=== PATIENT | female | born 1975 | race Caucasian/White ===

== ENCOUNTER 2020-08-11 13:54 | Outpatient (REF) | payer OTHER, SELFPAY ==
[2020-08-11 17:27] LABS: Influenza A PCR NEGATIVE (Negative); Influenza B PCR NEGATIVE (Negative); Resp Syncy Virus RNA Qual PCR NEGATIVE (Negative); SARS COV2 PCR INHOUSE POSITIVE (Negative)
== END 2020-08-11 13:55 | disposition home or self-care (01) ==
LOC: HO.LAB 13:54
PROVIDERS: Visit Provider Hospitalist
DX: Z20.828 Contact with and (suspected) exposure to other viral communicable diseases (principal)
CPT/HCPCS: 0241U

== ENCOUNTER 2020-12-11 12:54 | Outpatient (REF) | payer OTHER, SELFPAY | END 2020-12-11 12:55 | disposition home or self-care (01) | LOC: HO.HMGCLDS 12:54 | PROVIDERS: PCP Nurse Practitioner Family; Visit Provider Internal Medicine | DX: Z20.822 Contact with and (suspected) exposure to COVID-19 (principal) | CPT/HCPCS: U0003; U0005 ==

== ENCOUNTER 2021-09-14 11:10 | Outpatient (REF) | payer OTHER, SELFPAY ==
[2021-09-14 13:51] LABS: Hematocrit 38.1 % (37.0-47.0); Hemoglobin 11.8 g/dl (12.0-16.0); Mean Corpuscular Hemoglobin 23.6 pg (27.0-33.0); Mean Corpuscular Volume 76.2 fL (80.0-98.0); Mean Platelet Volume 9.8 fL (9.4-12.3); Platelet Count 332 X10*3/uL (160-400); Red Cell Distribution Width 17.4 % (11.0-16.0); White Blood Count 6.4 X10*3/uL (4.8-10.8)
[2021-09-14 14:05] LABS: Alanine Aminotransferase 24 U/L (0-31); Albumin Level 4.2 g/dL (3.5-5.0); Alkaline Phosphatase 96 U/L (39-117); Anion Gap 12 (12-20); Aspartate Amino Transferase 25 U/L (5-31); Bilirubin Direct < 0.2 mg/dL (0.0-0.5); Bilirubin Total 0.3 mg/dL (0.0-1.0); Blood Urea Nitrogen 12 mg/dL (9-16); Calcium 9.6 mg/dL (8.4-10.2); Carbon Dioxide 25 mmol/L (22-29); Chloride 106 mmol/L (96-108); Cholesterol 263 mg/dL; Estimated Glomerular Filt Rate > 60; Glucose Random 81 mg/dL (60-115); HDL Cholesterol 36 mg/dL; LDL Cholesterol Calculated 194 mg/dl; Potassium 4.4 mmol/L (3.3-5.1); Sodium 139 mmol/L (135-145); Total Protein 7.8 g/dL (6.5-8.0); Triglycerides 165 mg/dL
[2021-09-14 14:26] LABS: Thyroid Stimulating Hormone 1.66 uIU/mL (0.32-4.0)
[2021-09-14 14:46] LABS: Erythrocyte Sedimentation Rate 22 MM/HR (0-20)
== END 2021-09-14 11:11 | disposition home or self-care (01) ==
LOC: HO.HMGCLDS 11:10
PROVIDERS: PCP Nurse Practitioner Family; Visit Provider Internal Medicine
DX: R53.83 Other fatigue (principal)
CPT/HCPCS: 36415; 80048; 80061; 80076; 84443; 85027; 85652

== ENCOUNTER 2022-01-09 08:52 | Outpatient (REF) | payer OTHER, SELFPAY ==
[2022-01-09 11:17] LABS: MANUAL DIFF FLAG NO
[2022-01-09 11:25] LABS: Basophils Absolute Auto 0.1 X10*3/uL (0.0-0.2); Basophils Percent Auto 0.9 % (0-2); Eosinophils Absolute Auto 0.2 X10*3/uL (0.0-0.4); Eosinophils Percent Auto 2.8 % (0-4); Hemoglobin 11.2 g/dl (12.0-16.0); Imm Gran Abs Auto 0.01 X10*3/uL (0.00-0.03); Imm Gran Pct Auto 0.2 % (0.0-0.4); Lymphocytes Percent Auto 34.6 % (20-40); Mean Corpuscular HGB Conc 30.3 g/dl (31.0-35.0); Mean Corpuscular Hemoglobin 22.8 pg (27.0-33.0); Mean Corpuscular Volume 75.4 fL (80.0-98.0); Mean Platelet Volume 9.7 fL (9.4-12.3); Monocytes Absolute Auto 0.4 X10*3/uL (0.1-1.2); Monocytes Percent Auto 6.7 % (2-11); Neutrophils Absolute Auto 3.2 x10*3/uL (2.0-8.3); Neutrophils Percent Auto 54.8 % (45-73); Platelet Count 324 X10*3/uL (160-400); Red Blood Count 4.91 X10*6/uL (4.20-5.50); Red Cell Distribution Width 19.9 % (11.0-16.0); White Blood Count 5.8 X10*3/uL (4.8-10.8)
[2022-01-09 11:28] LABS: Appearance Urine CLEAR; Color Urine YELLOW; Glucose Urine UA NEG (NEG); Leukocyte Esterase Urine NEG (NEG); Nitrite Urine NEG (NEG); PH 5.5 (5.0-8.0); Specific Gravity - Urine >= 1.030 (1.005-1.025); Urine Blood NEG (NEG); Urine Ketones NEG (NEG); Urine Protein NEG (NEG-TRACE)
[2022-01-09 11:56] LABS: Ferritin 4 ng/mL (10-250); TSH reflex Free T4 1.75 uIU/mL (0.32-4.0)
[2022-01-09 11:58] LABS: Alanine Aminotransferase 20 U/L (0-31); Albumin Level 4.1 g/dL (3.5-5.0); Alkaline Phosphatase 94 U/L (39-117); Anion Gap 12 (12-20); Aspartate Amino Transferase 21 U/L (5-31); Bilirubin Total 0.4 mg/dL (0.0-1.0); Blood Urea Nitrogen 13 mg/dL (9-16); Calcium 9.6 mg/dL (8.4-10.2); Carbon Dioxide 25 mmol/L (22-29); Chloride 108 mmol/L (96-108); Estimated Glomerular Filt Rate > 60; Glucose Random 97 mg/dL (60-115); Iron 23 mcg/dL (30-160); Percent Iron Saturation 5 % (15-50); Potassium 4.6 mmol/L (3.3-5.1); Sodium 140 mmol/L (135-145); Total Iron Binding Capacity 442 mcg/dL (228-428); Total Protein 7.6 g/dL (6.5-8.0); Unsaturated Iron Binding 419 ug/dL
[2022-01-09 12:10] LABS: Folate 11.9 ng/mL (> or = 4.0); Vitamin B12 284 pg/mL (200-900)
[2022-01-09 12:17] LABS: Erythrocyte Sedimentation Rate 20 MM/HR (0-20)
[2022-01-11 21:11] LABS: Lyme Abs Screen <0.90 index
[2022-01-13 12:16] LABS: Anti Nuclear Antibody Screen POSITIVE (NEGATIVE)
[2022-01-17 15:35] LABS: Vitamin D 25-OH, D2 <4 ng/mL; Vitamin D 25-OH, D3 14 ng/mL; Vitamin D 25-OH, Total 14 ng/mL (30-100)
== END 2022-01-09 08:53 | disposition home or self-care (01) ==
LOC: HO.HMGCLDS 08:52
PROVIDERS: PCP Nurse Practitioner Family; Visit Provider Nurse Practitioner Family
DX: R53.83 Other fatigue (principal)
CPT/HCPCS: 36415; 80053; 81003; 82306; 82607; 82728; 82746; 83540; 84443; 85025; 85652; 86038; 86039; 86140; 86617; 86618

== ENCOUNTER 2022-02-01 | Outpatient (REF) | payer OTHER, SELFPAY ==
[2022-02-02 12:15] LABS: FIT Int Ctl YES; FIT1 NEGATIVE (NEGATIVE); FIT2 NEGATIVE (NEGATIVE)
== END 2022-02-01 00:01 | disposition home or self-care (01) ==
LOC: HO.LNP
PROVIDERS: Visit Provider Nurse Practitioner Family
DX: E61.1 Iron deficiency (principal); R53.83 Other fatigue
CPT/HCPCS: 82274

== ENCOUNTER 2022-02-02 09:55 | Outpatient (REF) | payer OTHER, SELFPAY | END 2022-02-02 09:56 | disposition home or self-care (01) | LOC: HO.HMGCLNP 09:55 | PROVIDERS: PCP Nurse Practitioner Family; Visit Provider Nurse Practitioner Family | DX: Z13.89 Encounter for screening for other disorder (principal) ==

== ENCOUNTER 2022-05-09 12:18 | Outpatient (REF) | payer OTHER, SELFPAY ==
[2022-05-09 14:04] LABS: MANUAL DIFF FLAG NO
[2022-05-09 14:12] LABS: Basophils Absolute Auto 0.1 X10*3/uL (0.0-0.2); Basophils Percent Auto 0.9 % (0-2); Eosinophils Absolute Auto 0.2 X10*3/uL (0.0-0.4); Eosinophils Percent Auto 2.3 % (0-4); Hematocrit 35.8 % (37.0-47.0); Imm Gran Abs Auto 0.02 X10*3/uL (0.00-0.03); Imm Gran Pct Auto 0.3 % (0.0-0.4); Lymphocytes Absolute Auto 2.7 X10*3/uL (1.2-4.9); Lymphocytes Percent Auto 41.5 % (20-40); Mean Corpuscular HGB Conc 30.7 g/dl (31.0-35.0); Mean Corpuscular Hemoglobin 22.5 pg (27.0-33.0); Mean Corpuscular Volume 73.4 fL (80.0-98.0); Mean Platelet Volume 9.4 fL (9.4-12.3); Monocytes Absolute Auto 0.5 X10*3/uL (0.1-1.2); Monocytes Percent Auto 7.3 % (2-11); Neutrophils Absolute Auto 3.2 x10*3/uL (2.0-8.3); Neutrophils Percent Auto 47.7 % (45-73); Platelet Count 251 X10*3/uL (160-400); Red Blood Count 4.88 X10*6/uL (4.20-5.50); Red Cell Distribution Width 21.4 % (11.0-16.0); White Blood Count 6.6 X10*3/uL (4.8-10.8)
[2022-05-09 14:34] LABS: C Reactive Protein 0.11 mg/dL (< or = 0.50); Iron 35 mcg/dL (30-160); Percent Iron Saturation 8 % (15-50); Total Iron Binding Capacity 460 mcg/dL (228-428); Unsaturated Iron Binding 425 ug/dL
[2022-05-09 14:40] LABS: Creatinine Urine 45.18 mg/dL; Total Protein Urine Random < 7 mg/dL (<12)
[2022-05-09 14:59] LABS: Erythrocyte Sedimentation Rate 20 MM/HR (0-20)
[2022-05-15 09:17] LABS: Anti DNA DS Antibody 1 IU/mL; SM/Ribonucleoprotein Ab <1.0 NEG AI (<1.0 NEG); Smith Protein <1.0 NEG AI (<1.0 NEG)
== END 2022-05-09 12:19 | disposition home or self-care (01) ==
LOC: HO.10HDL 12:18
PROVIDERS: Visit Provider Internal Medicine Rheumatology
DX: M54.50 Low back pain, unspecified (principal); M79.605 Pain in left leg; G89.29 Other chronic pain; R76.8 Other specified abnormal immunological findings in serum; D64.9 Anemia, unspecified; E61.1 Iron deficiency; R20.0 Anesthesia of skin
CPT/HCPCS: 36415; 83540; 84156; 85025; 85652; 86140; 86225; 86235; 99202

== ENCOUNTER 2022-10-16 12:27 | Outpatient (REF) | payer OTHER, SELFPAY ==
[2022-10-16 13:55] LABS: MANUAL DIFF FLAG NO
[2022-10-16 14:02] LABS: Basophils Absolute Auto 0.1 X10*3/uL (0.0-0.2); Basophils Percent Auto 0.9 % (0-2); Eosinophils Absolute Auto 0.1 X10*3/uL (0.0-0.4); Eosinophils Percent Auto 2.1 % (0-4); Hematocrit 39.1 % (37.0-47.0); Hemoglobin 12.1 g/dl (12.0-16.0); Imm Gran Abs Auto 0.01 X10*3/uL (0.00-0.03); Imm Gran Pct Auto 0.2 % (0.0-0.4); Immature Retic Fraction 24.2 % (3.0-15.9); Lymphocytes Absolute Auto 2.5 X10*3/uL (1.2-4.9); Lymphocytes Percent Auto 38.3 % (20-40); Mean Corpuscular HGB Conc 30.9 g/dl (31.0-35.0); Mean Corpuscular Hemoglobin 22.7 pg (27.0-33.0); Mean Corpuscular Volume 73.5 fL (80.0-98.0); Mean Platelet Volume 9.5 fL (9.4-12.3); Monocytes Absolute Auto 0.4 X10*3/uL (0.1-1.2); Monocytes Percent Auto 5.4 % (2-11); Neutrophils Absolute Auto 3.5 x10*3/uL (2.0-8.3); Neutrophils Percent Auto 53.1 % (45-73); Platelet Count 357 X10*3/uL (160-400); Red Blood Count 5.32 X10*6/uL (4.20-5.50); Red Cell Distribution Width 20.7 % (11.0-16.0); Retic HGB Equivalent 27.9 pg (30.0-35.0); Reticulocytes Absolute 0.054 X10*6/uL (0.026-0.095); White Blood Count 6.5 X10*3/uL (4.8-10.8)
[2022-10-16 14:35] LABS: Iron 32 mcg/dL (30-160); Percent Iron Saturation 8 % (15-50); Rheumatoid Factor 17.8 IU/mL (<15.0); Total Iron Binding Capacity 389 mcg/dL (228-428); Unsaturated Iron Binding 357 ug/dL
[2022-10-16 14:41] LABS: Ferritin 6 ng/mL (10-250)
[2022-10-17 17:28] LABS: Cyclic Citrullinated Peptide <16 UNITS
[2022-10-22 15:09] LABS: DNAds, Crithidia Antibody Negative (Negative)
== END 2022-10-16 12:28 | disposition home or self-care (01) ==
LOC: HO.HMGCLDS 12:27
PROVIDERS: PCP Nurse Practitioner Family; Visit Provider Nurse Practitioner Family
DX: E61.1 Iron deficiency (principal); R76.8 Other specified abnormal immunological findings in serum
CPT/HCPCS: 36415; 82728; 83540; 85025; 85045; 86200; 86255; 86431

== ENCOUNTER 2022-11-18 11:40 | Outpatient (REF) | payer OTHER, SELFPAY ==
[2022-11-18 13:52] LABS: MANUAL DIFF FLAG NO
[2022-11-18 14:06] LABS: Basophils Absolute Auto 0.1 X10*3/uL (0.0-0.2); Basophils Percent Auto 1.3 % (0-2); Eosinophils Absolute Auto 0.1 X10*3/uL (0.0-0.4); Eosinophils Percent Auto 2.1 % (0-4); Hematocrit 38.4 % (37.0-47.0); Imm Gran Abs Auto 0.02 X10*3/uL (0.00-0.03); Imm Gran Pct Auto 0.3 % (0.0-0.4); Immature Retic Fraction 33.5 % (3.0-15.9); Lymphocytes Absolute Auto 2.3 X10*3/uL (1.2-4.9); Lymphocytes Percent Auto 34.2 % (20-40); Mean Corpuscular HGB Conc 31.3 g/dl (31.0-35.0); Mean Corpuscular Hemoglobin 23.1 pg (27.0-33.0); Mean Corpuscular Volume 73.8 fL (80.0-98.0); Mean Platelet Volume 9.7 fL (9.4-12.3); Monocytes Absolute Auto 0.5 X10*3/uL (0.1-1.2); Monocytes Percent Auto 7.6 % (2-11); Neutrophils Absolute Auto 3.7 x10*3/uL (2.0-8.3); Neutrophils Percent Auto 54.5 % (45-73); Platelet Count 297 X10*3/uL (160-400); Red Cell Distribution Width 21.1 % (11.0-16.0); Retic HGB Equivalent 26.6 pg (30.0-35.0); Reticulocyte Percent 1.3 % (0.5-1.8); Reticulocytes Absolute 0.068 X10*6/uL (0.026-0.095); White Blood Count 6.7 X10*3/uL (4.8-10.8)
[2022-11-18 14:25] LABS: Iron 252 mcg/dL (30-160); Percent Iron Saturation 64 % (15-50); Total Iron Binding Capacity 393 mcg/dL (228-428); Unsaturated Iron Binding 141 ug/dL
[2022-11-18 14:32] LABS: Ferritin 7 ng/mL (10-250)
== END 2022-11-18 11:41 | disposition home or self-care (01) ==
LOC: HO.HMGCLDS 11:40
PROVIDERS: Absent Provider Internal Medicine; PCP Nurse Practitioner Family; Visit Provider Nurse Practitioner Family
DX: D64.9 Anemia, unspecified (principal)
CPT/HCPCS: 36415; 82728; 83540; 85025; 85045

== ENCOUNTER 2022-12-24 13:29 | Outpatient (REF) | payer OTHER, SELFPAY ==
[2022-12-24 15:00] LABS: Influenza A PCR NEGATIVE (Negative); Influenza B PCR NEGATIVE (Negative); Resp Syncy Virus RNA Qual PCR NEGATIVE (Negative); SARS COV2 PCR INHOUSE POSITIVE (Negative)
== END 2022-12-24 13:30 | disposition home or self-care (01) ==
LOC: HO.LAB 13:29
PROVIDERS: Visit Provider Internal Medicine
DX: Z20.822 Contact with and (suspected) exposure to COVID-19 (principal); R09.89 Other specified symptoms and signs involving the circulatory and respiratory systems
CPT/HCPCS: 0241U

== ENCOUNTER 2023-01-14 08:38 | Outpatient (REF) | payer OTHER, SELFPAY ==
[2023-01-14 12:36] LABS: Iron 32 mcg/dL (30-160); Percent Iron Saturation 12 % (15-50); Total Iron Binding Capacity 271 mcg/dL (228-428); Unsaturated Iron Binding 239 ug/dL
== END 2023-01-14 08:39 | disposition home or self-care (01) ==
LOC: HO.HMGCLDS 08:38
PROVIDERS: PCP Nurse Practitioner Family; Visit Provider Internal Medicine
DX: E61.1 Iron deficiency (principal)
CPT/HCPCS: 36415; 83540

== ENCOUNTER 2023-03-03 13:32 | Outpatient (REF) | payer OTHER, SELFPAY ==
--- NOTE | ~2023-03-03 | XR_ITS ---
EXAMINATION: XR SHOULDER, LEFT CLINICAL INFORMATION: Unspecified sprain of left shoulder joint COMPARISON: None available. TECHNIQUE: Three views of the left shoulder. FINDINGS: No evidence for acute bony fracture or dislocation. The clavicle is intact. Prominent calcifications are seen adjacent to the left humeral head fissures for calcific tendinitis or calcific bursitis. The scapula appears unremarkable. XR/XR shoulder LT min 2V IMPRESSION: 1. No acute bony fracture or dislocation. 2. Prominent calcifications adjacent to the left humeral head fissures for calcific bursitis or tendinitis.
== END 2023-03-03 13:33 | disposition home or self-care (01) ==
LOC: HO.HMGCX 13:32
PROVIDERS: PCP Nurse Practitioner Family; Visit Provider Internal Medicine
DX: S43.402A Unspecified sprain of left shoulder joint, initial encounter (principal)
CPT/HCPCS: 73030

== ENCOUNTER 2023-12-01 07:24 | Outpatient (AMB) | payer OTHER, SELFPAY ==
--- NOTE | 2023-12-01 07:19 | A.OFFPC_ITS ---
Intake Visit Reasons: medication follow up/[phone] Allergies ciprofloxacin [From CIPRO] Allergy (Intermediate, Verified 03/03/23 12:51) SHORTNESS OF BREATH, anxiety, anxiety Antihistamines - Alkylamine [ANTIHISTAMINES - ALKYLAMINE] Allergy (Unknown, Verified 03/03/23 12:51) FEELS JUMPY caffeine [CAFFEINE] Allergy (Unknown, Verified 03/03/23 12:51) UNK pseudoephedrine [From SUDAFED] Allergy (Unknown, Verified 03/03/23 12:51) UNK, palpitations, jitteriness, palpitations, jitteriness caffiene Adverse Reaction (Unknown, Uncoded 03/03/23 12:51) palpitations HPI medication follow up/[phone] HPI Details Pt has a hx of anemia. She reports some fatigue. Will order labs. Pt has seen rheumatology in the past as well. Denies abdominal pain, blood in stool, and hematuria. Due for colon screen, will refer to GI. Due for mammo, will order. [facility] Medical History Depression, major, recurrent Social History Household Members: Family Housing: Apartment Alcohol intake: never Patient Tobacco Use Status: Current everyday Tobacco user Tobacco use type: Cigarette Cigarettes Per Day: 10 Years Smoked: 23 years Packs per year/per ci.00 e-Cigarette/Vaping Use: Never Used service: No Current occupational status: employed Current occupation: government affairs director Review of Systems Const Reports as per HPI Physical exam (Primary Care) Tobacco/Smoking Status: Tobacco use Status Patient Tobacco Use Status Current everyday Tobacco 12/01/23 07:21 Tobacco use type Cigarette 12/01/23 07:21 e-Cigarette/Vaping Use Never Used 12/01/23 07:21 Const General: cooperative Orientation/consciousness: patient oriented x3 Neuro General: patient oriented x3 Psych Appearance: grossly normal Mental Status: mental status grossly normal Speech and movement: Clear speech present Affect: normal affect Attitude: cooperative Thought process: Normal thought process present Thought content: Normal thought content present Insight: Good insight present (Psych) Judgement: Good judgement present (Psych) Telehealth Telehealth Location of patient: address on file Patient Identification confirmed using: Name, : Yes Telehealth method: video Patient verbally consented to treatment: Yes Patient verbally consented to billing insurance company: Yes Patient informed of any privacy concerns related to visit: Yes Minutes spent on Phone/Video with Pt.: 10 Assessment and Plan Assessment & Plan (1) Fatigue: Code(s): R53.83 - Other fatigue Plan: Labs ordered (2) Anemia: Code(s): D64.9 - Anemia, unspecified Plan: Labs ordered (3) Screening for colon cancer: Code(s): Z12.11 - Encounter for screening for malignant neoplasm of colon Plan: referred to gastro Plan The patient agreed to the use of a medical laboratory specialist for this encounter. Scribed for NADIA Barnett-BC by Angeline Baires medical laboratory specialist, on 12/01/2023 at 07:20 EST. Orders: Orders Comprehensive [place]. Panel Fast Today D64.9 - Anemia, unspecified, R53.83 - Other fatigue Lipid Panel Today D64.9 - Anemia, unspecified, R53.83 - Other fatigue MM screening mammo BI Today Z12.31 - Encounter for screening mammogram for malignant neoplasm of breast Complete Blood Count Auto Diff Today D64.9 - Anemia, unspecified, R53.83 - Other fatigue TSH reflex Free T4 Today D64.9 - Anemia, unspecified, R53.83 - Other fatigue UA CC w/rflx Micro + Cult Today D64.9 - Anemia, unspecified, R53.83 - Other fatigue IRON PROFILE Today D64.9 - Anemia, unspecified, R53.83 - Other fatigue Ferritin Today D64.9 - Anemia, unspecified, R53.83 - Other fatigue Vitamin B12 and Folate Today D64.9 - Anemia, unspecified Referrals Gastroenterology Referral Z12.11 - Encounter for screening for malignant neoplasm of colon Coding Level of Care Code Tele Est Pt Level 3 (86856) Diagnoses Fatigue R53.83 Anemia D64.9 Screening for colon cancer Z12.11
== END 2023-12-01 14:59 | disposition home or self-care (01) ==
PROVIDERS: PCP Nurse Practitioner Family; Visit Provider Nurse Practitioner Family
DX: R53.83 Other fatigue (principal); D64.9 Anemia, unspecified; Z12.11 Encounter for screening for malignant neoplasm of colon
CPT/HCPCS: 99213

== ENCOUNTER 2023-12-02 10:19 | Outpatient (REF) | payer OTHER, SELFPAY ==
[2023-12-02 13:29] LABS: MANUAL DIFF FLAG NO
[2023-12-02 13:36] LABS: Appearance Urine Turbid; Color Urine Yellow; Glucose Urine UA Negative (Negative); Leukocyte Esterase Urine Negative (Negative); Nitrite Urine Negative (Negative); PH 5.5 (5.0-9.0); Specific Gravity - Urine 1.025 (1.005-1.025); Urine Blood Negative (Negative); Urine Ketones Negative (Negative); Urine Protein Negative (Neg-Trace)
[2023-12-02 13:37] LABS: Basophils Absolute Auto 0.1 X10*3/uL (0.0-0.2); Basophils Percent Auto 0.9 % (0-2); Eosinophils Absolute Auto 0.2 X10*3/uL (0.0-0.4); Hematocrit 45.1 % (37.0-47.0); Hemoglobin 15.5 g/dl (12.0-16.0); Imm Gran Abs Auto 0.02 X10*3/uL (0.00-0.03); Imm Gran Pct Auto 0.3 % (0.0-0.4); Lymphocytes Absolute Auto 2.5 X10*3/uL (1.2-4.9); Lymphocytes Percent Auto 35.5 % (20-40); Mean Corpuscular HGB Conc 34.4 g/dl (31.0-35.0); Mean Corpuscular Hemoglobin 31.6 pg (27.0-33.0); Mean Platelet Volume 10.3 fL (9.4-12.3); Monocytes Absolute Auto 0.5 X10*3/uL (0.1-1.2); Neutrophils Absolute Auto 3.7 x10*3/uL (2.0-8.3); Neutrophils Percent Auto 53.3 % (45-73); Platelet Count 266 X10*3/uL (160-400); Red Cell Distribution Width 13.3 % (11.0-16.0)
[2023-12-02 14:07] LABS: Alanine Aminotransferase 24 U/L (0-31); Albumin Level 4.2 g/dL (3.5-5.0); Alkaline Phosphatase 85 U/L (39-117); Anion Gap 13 (12-20); Aspartate Amino Transferase 19 U/L (5-31); Bilirubin Total 0.5 mg/dL (0.0-1.0); Blood Urea Nitrogen 11 mg/dL (9-16); Calcium 9.6 mg/dL (8.4-10.2); Carbon Dioxide 25 mmol/L (22-29); Chloride 104 mmol/L (96-108); Cholesterol 261 mg/dL (<200); Estimated Glomerular Filt Rate > 60; Glucose Fasting 93 mg/dL (60-99); HDL Cholesterol 33 mg/dL (>40); Iron 104 mcg/dL (30-160); LDL Cholesterol Calculated 191 mg/dL (<100); Percent Iron Saturation 40 % (15-50); Potassium 4.1 mmol/L (3.3-5.1); Sodium 138 mmol/L (135-145); Total Iron Binding Capacity 263 mcg/dL (228-428); Total Protein 7.8 g/dL (6.5-8.0); Triglycerides 186 mg/dL (<150); Unsaturated Iron Binding 159 ug/dL
[2023-12-02 14:19] LABS: Ferritin 89 ng/mL (10-250); TSH reflex Free T4 1.64 uIU/mL (0.32-4.0)
[2023-12-02 14:20] LABS: Folate 14.1 ng/mL (> or = 4.0); Vitamin B12 514 pg/mL (200-900)
== END 2023-12-02 10:20 | disposition home or self-care (01) ==
LOC: HO.HMGCLDS 10:19
PROVIDERS: PCP Nurse Practitioner Family; Visit Provider Nurse Practitioner Family
DX: R53.83 Other fatigue (principal); D64.9 Anemia, unspecified
CPT/HCPCS: 36415; 80053; 80061; 81003; 82607; 82728; 82746; 83540; 84443; 85025

== ENCOUNTER 2023-12-24 11:41 | Outpatient (REF) | payer OTHER, SELFPAY | END 2023-12-24 11:42 | disposition home or self-care (01) | LOC: HO.MAMMO 11:41 | PROVIDERS: PCP Nurse Practitioner Family; Visit Provider Nurse Practitioner Family | DX: Z12.31 Encounter for screening mammogram for malignant neoplasm of breast (principal) | CPT/HCPCS: 77063; 77067 ==

== ENCOUNTER → 2023-12-24 12:00 | Outpatient (BNV) | payer OTHER, SELFPAY | PROVIDERS: PCP Nurse Practitioner Family; Visit Provider Radiology Diagnostic Radiology | DX: Z12.31 Encounter for screening mammogram for malignant neoplasm of breast (principal) | CPT/HCPCS: 77063; 77067 ==

== ENCOUNTER 2024-06-30 13:51 | Outpatient (AMB) | payer OTHER, SELFPAY ==
[2024-06-30 13:52] VITALS: BP 110/74; PULSE 97; O2SAT 99; BMI 34.4
--- NOTE | 2024-06-30 13:52 | MHC.PC.OV ---
Vital Signs 06/30/24 13:52 Height 5 ft 5 in Weight 207 lb BMI 34.4 BP 110/74 Blood Pressure Location Rt brachial Position Sitting Pulse 97 Pulse Source Pulse Oximeter Pulse Oximetry (%) 99 Oxygen Delivery Method Room Air Intake Visit Reasons: Annual PE Intake Note: pt is here for annual exam Technology Project Manager Required: No Accompanied by: Self / Same As Patient Allergies ciprofloxacin [From CIPRO] Allergy (Intermediate, Verified 06/30/24 14:21) SHORTNESS OF BREATH, anxiety, anxiety Antihistamines - Alkylamine [ANTIHISTAMINES - ALKYLAMINE] Allergy (Unknown, Verified 06/30/24 14:21) FEELS JUMPY caffeine [CAFFEINE] Allergy (Unknown, Verified 06/30/24 14:21) UNK pseudoephedrine [From SUDAFED] Allergy (Unknown, Verified 06/30/24 14:21) UNK, palpitations, jitteriness, palpitations, jitteriness caffiene Adverse Reaction (Unknown, Uncoded 06/30/24 14:21) palpitations Medication List - Last Reconciled 06/30/[address] atorvastatin 10 mg PO BEDTIME cholecalciferol (vitamin D3) 50 mcg PO DAILY 90 days Tobacco use date assessed: 06/30/24 Dental Screening Dental Screen Date: 06/30/24 Did you have a dental visit in the last 12 months?: Yes Did you have a dental problem in the last 6 months where you did not have access to dental care?: No Was dental information given to patient?: Patient has dentist HPI Annual PE HPI Details Pt is here for a PE. Will order labs. Has a health data analyst. Mammo is up to date. Pt had a positive cologuard. She was referred to GI but has not seen them. Will resubmit referral. Pt sees a therapist. [facility] [place] Medical History Depression, major, recurrent Social History Household Members: Family Housing: Apartment Alcohol intake: never Patient Tobacco Use Status: Current everyday Tobacco user Tobacco use type: Cigarette Cigarettes Per Day: 10 Years Smoked: 23 years e-Cigarette/Vaping Use: Never Used service: No Current occupational status: employed Current occupation: head banquet waitress Cognitive needs: No Hearing needs: No Vision needs: No Questionnaire PHQ-9 Over the last 2 weeks, how often have you been bothered by any of the following problems? 1. Little interest or pleasure in doing things: several days 2. Feeling down, depressed, or hopeless: several days 3. Trouble falling or staying asleep, or sleeping too much: several days 4. Feeling tired or having little energy: several days 5. Poor appetite or overeating: several days 6. Feeling bad about yourself - or that you are a failure or have let yourself or your family down: several days 7. Trouble concentrating on things, such as reading the newspaper or watching television: not at all 8. Moving or speaking so slowly that other people could have noticed. Or the opposite - being so fidgety or restless that you have been moving around a lot more than usual: not at all 9. Thoughts that you would be better off or of hurting yourself in some way: not at all Total score: 6 Depression Screening Interpretation: Negative Depression Screening Done: Yes 97662 - PHQ-9 Billing: Yes Source: Developed by Drs. Donnie Cm, Mayte Frankel, Brice Anderson and colleagues, with an educational marcella from [employer]. Thrive Questionnaire Date Thrive assessed: 06/30/24 I am a: Patient What is your living situation today?: I have a steady place to live Within the past 12 months, did the food you bought not last and you didn't have the money to get more?: I choose not to answer this question Within the past 12 months, did you worry whether your food would run out before you got money to buy more?: I choose not to answer this question Do you have trouble paying for medicines?: No Do you have trouble getting transportation to medical appointments?: No Do you have trouble paying your heating and electricity bill?: I choose not to answer this question Do you have trouble taking care of your child, family member or friend?: I choose not to answer this question Do you have trouble with day-to-day activities such as bathing, preparing meals, shopping, managing finances, etc.?: No Are you currently unemployed and looking for a job?: No Are you interested in more education?: No Please select the resources that you would like help with: None Currently or been in a relationship where the following occur: No concerns reported THRIVE Score: 0 AUDIT C Alcohol Use Questionnaire (AUDIT-C) 1. How often do you have a drink containing alcohol?: Never 3. How often do you have six or more drinks on one occasion?: Never Total Score: 0 Score Reviewed/Action Taken: Yes RUPERTO-7 AMB Questionnaire RUPERTO-7 Date RUPERTO - 7 assessed: 06/30/24 Feeling nervous, anxious, or on edge: 1 = Several days Not being able to stop or control worryin = Several days Worrying too much about different things: 1 = Several days Trouble relaxin = Several days Being so restless that it is hard to sit still: 0 = Not at all Becoming easily annoyed or irritable: 1 = Several days Feeling afraid as if something awful might happen: 1 = Several days Total RUPERTO-7 score (0-4 normal; 5-9 mild; 10-14 moderate; 15-21 severe): 6 Source: Developed by Drs. Donnie Cm, Mayte Frankel, Brice Anderson and colleagues, with an educational marcella from [employer]. RUPERTO-7 Assessment Billing RUPERTO-7 Assessment Tool: RUPERTO-7 Assessment 13510 Review of Systems Const Denies chills and Denies fever(s) Eyes Denies blurry vision ENT Denies vertigo, Denies dizziness and Denies sore throat Card Denies chest pain at rest, Denies chest pain with activity, Denies diaphoresis, Denies dyspnea and Denies dyspnea on exertion Resp Denies cough, Denies dyspnea, Denies dyspnea on exertion and Denies wheezing GI Denies abdominal pain, Denies melena, Denies hematochezia, Denies constipation, Denies diarrhea and Denies loose stools Denies hematuria Musc Denies numbness and Denies tingling Skin/Breast Denies lesions Neuro Denies vertigo, Denies dizziness, Denies numbness and Denies tingling Psych Denies anxiety, Denies depression, Denies homicidal ideation, Denies suicidal ideation and Denies other (substance abuse) Aller/Immun Denies wheezing Physical exam (Primary Care) Vital Signs: Last Vital Signs Pulse 97 06/30/24 13:52 BP 110/74 06/30/24 13:52 Pulse Ox 99 06/30/24 13:52 Oxygen Delivery Method Room Air 06/30/24 13:52 BMI result Body Mass Index 34.4 Tobacco/Smoking Status: Tobacco use Status Tobacco use date assessed 06/30/24 06/30/24 13:53 Patient Tobacco Use Status Current everyday Tobacco 06/30/24 13:53 Tobacco use type Cigarette 06/30/24 13:53 e-Cigarette/Vaping Use Never Used 06/30/24 13:53 PHQ-9: PHQ-9 Score PHQ-9: Total score 6 06/30/24 14:17 Depression Screening Interpretation: Negative Thrive Assessment: Date of Thrive Assessment Date Thrive assessed 06/30/24 06/30/24 13:53 Currently or been in a relationship where the following occur: No concerns reported Const General: cooperative Nutritional Appearance: obese Orientation/consciousness: patient oriented x3 HENMT Head: Yes normal to inspection, Yes normocephalic and Yes atraumatic Ears: TM's normal bilaterally Eyes General: appearance normal, both eyes and all related structures Alignment and Position: alignment normal and position normal Neck Neck: Yes normal visual inspection, Yes no lymphadenopathy and Yes supple Resp Effort & Inspection: normal respiratory effort Auscultation: clear to auscultation bilaterally Cardio Rate: regular rate Rhythm: regular rhythm Heart sounds: S1 normal heart sound present, S2 normal heart sound present and no murmurs GI Palpation (GI): Soft to palpation and nontender Auscultation: normal bowel sounds Skin Rashes: no rashes Neuro General: patient oriented x3, moves all extremities, no focal motor deficits and deep tendon reflexes 2+ bilaterally Romberg Test: Negative Psych Appearance: grossly normal Mental Status: mental status grossly normal Speech and movement: Normal speech and movement present Affect: normal affect Attitude: cooperative Thought process: Normal thought process present Thought content: Normal thought content present Insight: Good insight present (Psych) Judgement: Good judgement present (Psych) Coding Level of Care Code Est Pt Prev Care 40-64y(62630) Diagnoses Physical exam Z00.00 Positive colorectal cancer screening using Cologuard test R19.5 Vitamin D deficiency E55.9 Additional Codes RUPERTO-7 Assessment Billing - RUPERTO-7 Assessment Tool: RUPERTO-7 Assessment 80312 ([id number]) Assessment & Plan Assessment & Plan (1) Physical exam: Code(s): Z00.00 - Encounter for general adult medical examination without abnormal findings Category: Medical Plan: Labs ordered (2) Positive colorectal cancer screening using Cologuard test: Code(s): R19.5 - Other fecal abnormalities Category: Medical Plan: Referred again to GI (3) Vitamin D deficiency: Code(s): E55.9 - Vitamin D deficiency, unspecified Category: Medical Plan: vitamin d ordered Plan The patient agreed to the use of a bilingual medical assistant for this encounter. Scribed for JOHN Barnett by Angeline Baires bilingual medical assistant, on 06/30/2024 at 14:15 EST. Orders: Orders Complete Blood Count Auto Diff Today Z00.00 - Encounter for general adult medical examination without abnormal findings Comprehensive [place]. Panel Fast Today Z00.00 - Encounter for general adult medical examination without abnormal findings UA CC w/rflx Micro + Cult Today Z00.00 - Encounter for general adult medical examination without abnormal findings TSH reflex Free T4 Today Z00.00 - Encounter for general adult medical examination without abnormal findings Lipid Panel Today Z00.00 - Encounter for general adult medical examination without abnormal findings Vitamin D 25-OH Total Today E55.9 - Vitamin D deficiency, unspecified Referrals Gastroenterology Referral R19.5 - Other fecal abnormalities
== END 2024-06-30 14:35 | disposition home or self-care (01) ==
PROVIDERS: PCP Nurse Practitioner Family; Visit Provider Nurse Practitioner Family
DX: Z00.00 Encounter for general adult medical examination without abnormal findings (principal); R19.5 Other fecal abnormalities; E55.9 Vitamin D deficiency, unspecified

== ENCOUNTER → 2024-06-30 13:51 | Outpatient (BNVA) | payer OTHER, SELFPAY | PROVIDERS: PCP Nurse Practitioner Family; Visit Provider Nurse Practitioner Family | DX: Z00.00 Encounter for general adult medical examination without abnormal findings (principal); R19.5 Other fecal abnormalities; E55.9 Vitamin D deficiency, unspecified | CPT/HCPCS: 96127; 99396 ==

== ENCOUNTER 2024-12-29 11:41 | Outpatient (REF) | payer OTHER, SELFPAY | END 2024-12-29 11:42 | disposition home or self-care (01) | LOC: HO.MAMMO 11:41 | PROVIDERS: PCP Nurse Practitioner Family; Visit Provider Nurse Practitioner Family | DX: Z12.31 Encounter for screening mammogram for malignant neoplasm of breast (principal) | CPT/HCPCS: 77063; 77067 ==

== ENCOUNTER → 2024-12-29 12:00 | Outpatient (BNV) | payer OTHER, SELFPAY | PROVIDERS: PCP Nurse Practitioner Family; Visit Provider Internal Medicine | DX: Z12.31 Encounter for screening mammogram for malignant neoplasm of breast (principal) | CPT/HCPCS: 77063; 77067 ==

== ENCOUNTER 2025-01-04 10:07 | Outpatient (AMB) | payer OTHER, SELFPAY ==
--- NOTE | 2025-01-04 10:16 | A.OFFPC_ITS ---
Vital Signs 01/04/25 10:23 Height 5 ft 5 in Weight 214 lb BMI 35.6 BP 120/80 Blood Pressure Location Lt brachial Position Sitting Pulse 88 Pulse Source Pulse Oximeter Pulse Oximetry (%) 98 Oxygen Delivery Method Room Air Intake Visit Reasons: 6 months f/up Allergies ciprofloxacin [From CIPRO] Allergy (Intermediate, Verified 01/04/25 11:06) SHORTNESS OF BREATH, anxiety, anxiety Antihistamines - Alkylamine [ANTIHISTAMINES - ALKYLAMINE] Allergy (Unknown, Verified 01/04/25 11:06) FEELS JUMPY caffeine [CAFFEINE] Allergy (Unknown, Verified 01/04/25 11:06) UNK pseudoephedrine [From SUDAFED] Allergy (Unknown, Verified 01/04/25 11:06) UNK, palpitations, jitteriness, palpitations, jitteriness caffiene Adverse Reaction (Unknown, Uncoded 01/04/25 11:06) palpitations Medication List - Last Reconciled 01/04/[address]- atorvastatin 10 mg PO BEDTIME cholecalciferol (vitamin D3) 50 mcg PO DAILY 90 days Tobacco use date assessed: 06/30/24 Dental Screening Dental Screen Date: 06/30/24 HPI 6 months f/up HPI Details Chief Complaint The patient's primary concerns are increased depression and ongoing fatigue. History of Present Illness The patient is a 49-year-old female presenting with follow-up concerns for anxiety, depression, and fatigue. She has a history of anxiety and depression, with her depression symptoms worsening recently. In the past, she was managed on sertraline and found it beneficial. Additionally, she experiences persistent fatigue, but previous investigations ruled out lupus. The patient is open to restarting sertraline to manage her depressive symptoms. pt does have a therapist Social History - The patient sees a therapist regularly . Health Maintenance - Encouraged the patient to complete lab oratory tests to assess current health status. - Discussed the initiation of sertraline for depression management. Review of Systems - Psychiatric: Reports increased depress ion, history of anxiety and depression. Denies suicidal or homicidal ideation. - Constitutional: Reports fatigue. Physical Exam General: Cooperative, healthy appearing, comfortable, no acute distress and well developed Orientation: Patient oriented x3 Limitations: No limitations Head: Normal to inspection Ears: Hearing grossly normal bilaterally Nose: Normal external nose present Face and sinus: Normal facial exam Eyes: Appearance normal, both eyes and all related structures Neck: Normal visual inspection and Yes full ROM Respiratory: Normal respiratory effort and able to speak in complete sentences. Clear to auscultation bilaterally Cardiovascular: Regular rate and rhythm. Normal S1 and S2 GI: Normal to inspection. Soft to palpation and nontender Skin: No rashes or lesions noted Neuro: Patient oriented x3 Extremities: Normal to inspection Results Plan During this visit, I have proposed restarting sertraline at a low dose of 25 mg at night to manage her worsening depression. It is important for the patient to understand it could take up to two months for optimal effectiveness, and potential side effects of the medication were explained. Additionally, laboratory testing will be completed to further evaluate ongoing fatigue and general health, providing insights into any underlying health concerns contributing to her symptoms. Discussion Notes I thoroughly discussed restarting sertraline with the patient to manage her depressive symptoms, emphasizing the anticipated time frame for therapeutic effects and the possibility of side effects. Consent for the medication was obtained after reviewing its risks and benefits. I encouraged her to complete her lab tests the next day to evaluate for any underlying issues contributing to her fatigue. We discussed ensuring continued follow-up to assess treatment efficacy and adjust as needed. Patient Instructions - Begin taking sertraline 25 mg at night . - Expect it may take up to two months to notice the full effects. - Be prepared for possible side effects and notify if there are any concerns. - Complete recommended lab tests tomorro w. - Keep regular follow-up appointments wi th your therapist. [facility] Medical History Depression, major, recurrent Social History Household Members: Family Housing: Apartment Alcohol intake: never Patient Tobacco Use Status: Current everyday Tobacco user Tobacco use type: Cigarette Cigarettes Per Day: 10 Years Smoked: 23 years Packs per year/per ci.00 e-Cigarette/Vaping Use: Never Used service: No Current occupational status: employed Current occupation: buffet waiter/waitress Cognitive needs: No Hearing needs: No Vision needs: No Questionnaire PHQ-9 Over the last 2 weeks, how often have you been bothered by any of the following problems? 1. Little interest or pleasure in doing things: nearly every day 2. Feeling down, depressed, or hopeless: nearly every day 3. Trouble falling or staying asleep, or sleeping too much: several days 4. Feeling tired or having little energy: nearly every day 5. Poor appetite or overeating: more than half the days 6. Feeling bad about yourself - or that you are a failure or have let yourself or your family down: several days 7. Trouble concentrating on things, such as reading the newspaper or watching television: not at all 8. Moving or speaking so slowly that other people could have noticed. Or the opposite - being so fidgety or restless that you have been moving around a lot more than usual: several days 9. Thoughts that you would be better off or of hurting yourself in some way: not at all Total score: 14 Depression Screening Interpretation: Positive Depression Screening Follow-up: Existing condition, In treatment and New Medication prescribed Depression Screening Done: Yes 20839 - PHQ-9 Billing: Yes Source: Developed by Drs. Donnie Cm, Mayte Frankel, Brice Anderson and colleagues, with an educational marcella from [employer] Thrive Questionnaire Date Thrive assessed: 01/04/25 I am a: Patient What is your living situation today?: I have a steady place to live Within the past 12 months, did the food you bought not last and you didn't have the money to get more?: Never true Within the past 12 months, did you worry whether your food would run out before you got money to buy more?: Never true Do you have trouble paying for medicines?: No Do you have trouble getting transportation to medical appointments?: No Do you have trouble paying your heating and electricity bill?: I choose not to answer this question Do you have trouble taking care of your child, family member or friend?: No Do you have trouble with day-to-day activities such as bathing, preparing meals, shopping, managing finances, etc.?: Yes Are you currently unemployed and looking for a job?: No Are you interested in more education?: No Please select the resources that you would like help with: None Currently or been in a relationship where the following occur: No concerns reported THRIVE Score: 0 AUDIT C Alcohol Use Questionnaire (AUDIT-C) 1. How often do you have a drink containing alcohol?: Never 3. How often do you have six or more drinks on one occasion?: Never Total Score: 0 Score Reviewed/Action Taken: Yes RUPERTO-7 AMB Questionnaire RUPERTO-7 Date RUPERTO - 7 assessed: 01/04/25 Feeling nervous, anxious, or on edge: 2 = More than half the days Not being able to stop or control worryin = More than half the days Worrying too much about different things: 2 = More than half the days Trouble relaxin = Several days Being so restless that it is hard to sit still: 0 = Not at all Becoming easily annoyed or irritable: 1 = Several days Feeling afraid as if something awful might happen: 2 = More than half the days Total RUPERTO-7 score (0-4 normal; 5-9 mild; 10-14 moderate; 15-21 severe): 10 Source: Developed by Drs. Donnie Cm, Mayte Frankel, Brice Anderson and colleagues, with an educational marcella from [employer] RUPERTO-7 Assessment Billing RUPERTO-7 Assessment Tool: RUPERTO-7 Assessment 52946 Physical exam (Primary Care) Vital Signs: Last Vital Signs Pulse 88 01/04/25 10:23 BP 120/80 01/04/25 10:23 Pulse Ox 98 01/04/25 10:23 Oxygen Delivery Method Room Air 01/04/25 10:23 BMI result Body Mass Index 35.6 Tobacco/Smoking Status: Tobacco use Status Tobacco use date assessed 06/30/24 01/04/25 10:17 Patient Tobacco Use Status Current everyday Tobacco 01/04/25 10:17 Tobacco use type Cigarette 01/04/25 10:17 e-Cigarette/Vaping Use Never Used 01/04/25 10:17 PHQ-9: PHQ-9 Score PHQ-9: Total score 14 01/04/25 10:23 Depression Screening Interpretation: Positive Depression Screening Follow-up: Existing condition, In treatment and New Medication prescribed Thrive Assessment: Date of Thrive Assessment Date Thrive assessed 01/04/25 01/04/25 10:23 Currently or been in a relationship where the following occur: No concerns reported Coding Level of Care Code Est Pt Level 3 (65853) Diagnoses Fatigue R53.83 Depression, major, recurrent F33.9 Anxiety F41.9 Additional Codes RUPERTO-7 Assessment Billing - RUPERTO-7 Assessment Tool: RUPERTO-7 Assessment 72976 ([id number]) PHQ-9 - 45284 - PHQ-9 Billing: Yes ([id number]) Assessment & Plan Assessment & Plan (1) Fatigue: Code(s): R53.83 - Other fatigue Category: Medical (2) Depression, major, recurrent: Code(s): F33.9 - Major depressive disorder, recurrent, unspecified Category: Medical (3) Anxiety: Code(s): F41.9 - Anxiety disorder, unspecified Category: Medical Plan . Orders: Orders Cortisol Random Today F33.9 - Major depressive disorder, recurrent, unspecified, F41.9 - Anxiety disorder, unspecified, R53.83 - Other fatigue Medications: New sertraline 25 mg PO DAILY 90 tabs 0RF
[2025-01-04 10:23] VITALS: BP 120/80; PULSE 88; O2SAT 98; BMI 35.6
== END 2025-01-04 11:52 | disposition home or self-care (01) ==
LOC: HO.HMCC 10:09
PROVIDERS: PCP Nurse Practitioner Family; Visit Provider Nurse Practitioner Family
DX: R53.83 Other fatigue (principal); F33.9 Major depressive disorder, recurrent, unspecified; F41.9 Anxiety disorder, unspecified

== ENCOUNTER → 2025-01-04 10:07 | Outpatient (BNVA) | payer OTHER, SELFPAY | PROVIDERS: PCP Nurse Practitioner Family; Visit Provider Nurse Practitioner Family | DX: F33.9 Major depressive disorder, recurrent, unspecified (principal); F41.9 Anxiety disorder, unspecified; Z13.31 Encounter for screening for depression; Z13.39 Encounter for screening examination for other mental health and behavioral disorders | CPT/HCPCS: 96127; 99212 ==

== ENCOUNTER 2025-01-11 10:46 | Outpatient (REF) | payer OTHER, SELFPAY ==
[2025-01-11 13:31] LABS: Appearance Urine Clear; Color Urine Yellow; Glucose Urine UA Negative (Negative); Leukocyte Esterase Urine Negative (Negative); Nitrite Urine Negative (Negative); Urine Blood Negative (Negative); Urine Ketones Negative (Negative); Urine Protein Negative (Neg-Trace)
[2025-01-11 13:44] LABS: MANUAL DIFF FLAG NO
[2025-01-11 13:52] LABS: Basophils Absolute Auto 0.1 X10*3/uL (0.0-0.2); Basophils Percent Auto 0.9 % (0-2); Eosinophils Absolute Auto 0.1 X10*3/uL (0.0-0.4); Eosinophils Percent Auto 1.6 % (0-4); Hematocrit 42.2 % (37.0-47.0); Hemoglobin 14.5 g/dl (12.0-16.0); Imm Gran Abs Auto 0.02 X10*3/uL (0.00-0.03); Imm Gran Pct Auto 0.3 % (0.0-0.4); Lymphocytes Absolute Auto 2.1 X10*3/uL (1.2-4.9); Lymphocytes Percent Auto 33.1 % (20-40); Mean Corpuscular HGB Conc 34.4 g/dl (31.0-35.0); Mean Corpuscular Hemoglobin 30.9 pg (27.0-33.0); Mean Platelet Volume 9.5 fL (9.4-12.3); Monocytes Absolute Auto 0.4 X10*3/uL (0.1-1.2); Monocytes Percent Auto 5.8 % (2-11); Neutrophils Absolute Auto 3.7 x10*3/uL (2.0-8.3); Neutrophils Percent Auto 58.3 % (45-73); Platelet Count 276 X10*3/uL (160-400); Red Blood Count 4.69 X10*6/uL (4.20-5.50); Red Cell Distribution Width 13.2 % (11.0-16.0); White Blood Count 6.4 X10*3/uL (4.8-10.8)
[2025-01-11 14:23] LABS: Cortisol Random 9.6 ug/dL
[2025-01-11 14:36] LABS: Alanine Aminotransferase 41 U/L (0-31); Anion Gap 12 (12-20); Aspartate Amino Transferase 34 U/L (5-31); Bilirubin Total 0.4 mg/dL (0.0-1.0); Blood Urea Nitrogen 11 mg/dL (9-16); Calcium 9.3 mg/dL (8.4-10.2); Carbon Dioxide 25 mmol/L (22-29); Chloride 106 mmol/L (96-108); Cholesterol 224 mg/dL (<200); Estimated Glomerular Filt Rate > 60; Glucose Fasting 81 mg/dL (60-99); HDL Cholesterol 36 mg/dL (>40); LDL Cholesterol Calculated 152 mg/dL (<100); Potassium 4.1 mmol/L (3.3-5.1); Sodium 139 mmol/L (135-145); Total Protein 7.6 g/dL (6.5-8.0); Triglycerides 181 mg/dL (<150)
[2025-01-11 14:45] LABS: Vitamin D 25-OH Total 70.7 ng/mL (>30)
[2025-01-11 18:00] LABS: Alkaline Phosphatase 83 U/L (39-117)
== END 2025-01-11 10:47 | disposition home or self-care (01) ==
LOC: HO.HMGCLDS 10:46
PROVIDERS: PCP Nurse Practitioner Family; Visit Provider Nurse Practitioner Family
DX: Z00.00 Encounter for general adult medical examination without abnormal findings (principal); E78.5 Hyperlipidemia, unspecified; F33.9 Major depressive disorder, recurrent, unspecified; F41.9 Anxiety disorder, unspecified; E55.9 Vitamin D deficiency, unspecified
CPT/HCPCS: 36415; 80053; 80061; 81003; 82306; 82533; 84443; 85025

== ENCOUNTER 2025-03-14 11:11 | Outpatient (REF) | payer OTHER, SELFPAY ==
--- NOTE | ~2025-03-14 | US_ITS ---
CLINICAL HISTORY: R74.8 - Abnormal levels of other serum enzymes US abdomen complete Comparison: None Findings: The visualized pancreas head is normal. The visualized aorta and inferior vena cava are normal caliber. The liver is normal in size, right lobe length is 14.3 cm. Moderately to severely echogenic liver parenchyma, no hepatic lesion is seen. No intrahepatic bile duct dilatation. The common duct is 3 mm in diameter. Cholelithiasis, no gallbladder wall thickening, negative sonographic Wolfe's sign. The main portal vein is patent with antegrade flow. The right kidney is normal, 10.5 cm in length. The left kidney is normal, 10.7 cm in length. The spleen is normal, 10.2 cm in length. No free fluid in the abdomen. Impression: 1. Cholelithiasis without acute inflammation. 2. Echogenic liver parenchyma, non-specific, commonly seen in hepatic steatosis or chronic hepatitis. This document has been electronically signed by: Chichi Plaza MD on 03/15/2025 12:03:19
== END 2025-03-14 11:12 | disposition home or self-care (01) ==
LOC: HO.HMGCX 11:11
PROVIDERS: PCP Nurse Practitioner Family; Visit Provider Nurse Practitioner Family
DX: R74.8 Abnormal levels of other serum enzymes (principal)
CPT/HCPCS: 76700

== ENCOUNTER → 2025-03-14 11:18 | Outpatient (BNV) | payer OTHER, SELFPAY | PROVIDERS: PCP Nurse Practitioner Family; Visit Provider Radiology Diagnostic Radiology | DX: K80.20 Calculus of gallbladder without cholecystitis without obstruction (principal); K76.89 Other specified diseases of liver | CPT/HCPCS: 76700 ==